=== PATIENT | female | born 1970 | race American Indian/Alaskan Native ===

== ENCOUNTER 2019-05-25 17:25 | Emergency (ER) | payer MEDICAID ==
[~2019-05-25] VITALS: Ht 167.6 cm; Wt 86.0 kg
[2019-05-25 17:44] VITALS: BP 122/75
[2019-05-25] MEDS ORDERED: azithromycin 250mg tablet PO ONE (18:00)
[2019-05-25] MEDS ORDERED: metroNIDAZOLE 500mg tablet PO ONE (18:00)
[2019-05-25] MEDS ORDERED: CefTRIAXone 250MG IM Kit w/LIDOcaine IM ONE (18:00)
--- NOTE | 2019-05-25 18:03 | NUR ---
Urine obtain, split between internal sample and SART sample which was handled and packed per SART protocol.
[2019-05-25 18:12] LABS: CLARITY,URINE SLIGHTLY CLOUDY (Clear); COLOR,URINE YELLOW (Yellow); GLUCOSE, URINE NEGATIVE (Neg); KETONES,URINE NEGATIVE (Neg); LEUKOCYTE ESTERASE ,URINE TRACE (Neg); NITRITES, URINE NEGATIVE (Neg); OCCULT BLOOD,URINE NEGATIVE (Neg); PH,URINE 7.5 (4.8-8.0); PROTEIN,URINE NEGATIVE (Neg); UROBILINOGEN,URINE 0.2 E.U/dL (0.2-1.0)
[2019-05-25 18:14] LABS: UA COLLECTION TYPE VOIDED
[2019-05-25 18:18] LABS: BACTERIA,URINE FEW /HPF (Neg); MUCUS STRANDS FEW /LPF (Neg); RBC,URINE 0-2 /HPF (0-2); SQUAMOUS EPITHELIAL CELL,UR MODERATE /LPF (FEW); WBC,URINE 0-4 /HPF (0-4)
== END 2019-05-25 20:43 | disposition home or self-care (01) ==
LOC: EEVIPCON 17:27 → ER 17:27
DX: T76.21XA Adult sexual abuse, suspected, initial encounter (principal); S70.12XA Contusion of left thigh, initial encounter; S70.11XA Contusion of right thigh, initial encounter; S40.022A Contusion of left upper arm, initial encounter; S40.021A Contusion of right upper arm, initial encounter; S00.83XA Contusion of other part of head, initial encounter; F10.99 Alcohol use, unspecified with unspecified alcohol-induced disorder; F32.9 Major depressive disorder, single episode, unspecified; Z90.710 Acquired absence of both cervix and uterus; Z88.8 Allergy status to other drugs, medicaments and biological substances; Y04.8XXA Assault by other bodily force, initial encounter; Y93.89 Activity, other specified; Y92.89 Other specified places as the place of occurrence of the external cause; Y99.8 Other external cause status; Y90.9 Presence of alcohol in blood, level not specified
CPT/HCPCS: 81001; 87088; 96372; 99284; J0696; J3490

== ENCOUNTER 2019-06-13 19:57 | Emergency (ER) | payer MEDICAID ==
[~2019-06-13] VITALS: Ht 167.6 cm; Wt 91.8 kg
[2019-06-13 20:06] VITALS: BP 111/70
[2019-06-13] MEDS ORDERED: AMOX-422 PO (20:33)
[2019-06-13] MEDS ORDERED: TETanus/Pertussis (Acell)/Diphther VAC/PF (Tdap-Adult) 0.5ml syringe IMVAC ONE (20:35)
[2019-06-13] MEDS ORDERED: amox tr/potassium clavulanate 875/125mg TAB PO ONE (20:35)
== END 2019-06-13 20:59 | disposition home or self-care (01) ==
LOC: ER 19:58
DX: S81.831A Puncture wound without foreign body, right lower leg, initial encounter (principal); S80.11XA Contusion of right lower leg, initial encounter; F32.9 Major depressive disorder, single episode, unspecified; Z90.710 Acquired absence of both cervix and uterus; Z88.8 Allergy status to other drugs, medicaments and biological substances; Z79.2 Long term (current) use of antibiotics; Z72.89 Other problems related to lifestyle; W54.0XXA Bitten by dog, initial encounter; Y93.01 Activity, walking, marching and hiking; Y92.488 Other paved roadways as the place of occurrence of the external cause; Y99.8 Other external cause status
CPT/HCPCS: 90471; 90715; 99283